=== PATIENT | female | born 1955 | race Caucasian/White ===

== ENCOUNTER 2017-07-18 21:37 | Inpatient (IN) | payer OTHER ==
[~2017-07-18] VITALS: Ht 162.6 cm; Wt 95.4 kg
--- NOTE | 2017-07-18 22:30 | NUR ---
TO BED 9 BIB PARAMEDICS C/O INTERMITTENT DIZZINESS X9 WEEKS. PT AAOX4 NO ACUTE DISTRESS NOTED, RESP EVEN AND UNLABORED. SKIN WARM, PALE, NONDIAPHORETIC. PLACE PT ON CARDAIC MONITORING, CONTINUOUS POX. PENDING ER MD MARAVILLA. PT FAMILY MEMBERS AT BEDSIDE.
--- NOTE | 2017-07-18 23:18 | NUR ---
DR. RODRIGUEZ PAGELea PER ASHA KU ORDER.
[2017-07-19] VITALS (19 sets, daily range): BP systolic 100–157; BP diastolic 33–75
--- NOTE | 2017-07-19 00:21 | NUR ---
DR. RODRIGUEZ PAGELea PER ASHA KU ORDER.
--- NOTE | 2017-07-19 00:21 | NUR ---
PT CAME BACK FROM THE BATHROOM, ASSISTED PT BACK TO BE, PT C/O DIZZINESS. ER MADE AWARE WITH ORDERS RECEIVED. WILL CARRY OUT ORDERS.
--- NOTE | 2017-07-19 00:49 | NUR ---
BLOOD DRAWN BY MATERIALS BUYER.
--- NOTE | 2017-07-19 00:51 | NUR ---
DR. RODRIGUEZ PAGELea PER ASHA KU ORDER.
--- NOTE | 2017-07-19 01:08 | NUR ---
[facility] CALLED. ANGELO MEAD NO BEDS AVAILABLE.
[2017-07-19 01:21] LABS: BASOPHILS % (AUTO) 0.1 % (0.0-2.0); LYMPHOCYTES # (AUTO) 0.8 /CMM (0.8-4.8); LYMPHOCYTES % (AUTO) 19.9 % (20.0-44.0); MEAN CORPUSCULAR HGB CONC 35 g/dl (31.0-36.0); MEAN CORPUSCULAR VOLUME 113 fL (82-100); MONOCYTES # (AUTO) 0.7 /CMM (0.1-1.30); MONOCYTES % (AUTO) 17.7 % (2.0-12.0); NEUTROPHILS # (AUTO) 2.6 /CMM (1.8-8.9); NEUTROPHILS % (AUTO) 61.3 % (43.0-81.0); PLATELET COUNT (AUTO) 202 /CMM (150-450); RDW COEFFICIENT OF VARIATION 31.8 (11.5-15.0); WHITE BLOOD COUNT (AUTO) 4.2 K/uL (4.3-11.0)
[2017-07-19 01:30] LABS: ALBUMIN 2.2 g/dL (3.4-5.0); BILIRUBIN,TOTAL 0.6 mg/dL (0.2-1.0); CREATININE 1.5 mg/dL (0.6-1.3); TOTAL PROTEIN, SERUM 6.2 g/dL (6.4-8.2)
[2017-07-19 01:35] LABS: HEMOGLOBIN 3.7 g/dL (11.5-14.8)
[2017-07-19 01:36] LABS: HEMATOCRIT 11 % (33-45); RED BLOOD CELL COUNT(AUTO) 0.94 MIL/uL (4.0-5.2)
[2017-07-19 01:37] LABS: POTASSIUM 2.7 mmol/L (3.5-5.1)
[2017-07-19 01:38] LABS: THYROID STIMULATING HORMONE 0.076 uIU/mL (0.358-3.74)
--- NOTE | 2017-07-19 01:55 | NUR ---
PT AAOX4 NO ACUTE DISTRESS NOTED, RESP EVEN AND UNLABORED. PT DENIES DIZZINESS AT THIS TIME. PT FAMILY MEMBERS REMAINS AT BEDSIDE. CALL LIGHT WIHTIN REACH.
[2017-07-19 01:56] LABS: EOSINOPHILS % (MANUAL) 2 % (0-4); LYMPHOCYTES % (MANUAL) 22 % (16-48); MONOCYTES % (MANUAL) 11 % (0-11.0); NEUTROPHILS % (MANUAL) 65 (42-76)
[2017-07-19] MEDS ORDERED: diphenhydrAMINE HCL 50 MG/ML VIAL IV ONE (02:00)
[2017-07-19] MEDS ORDERED: POTASSIUM CHLORIDE 20 MEQ POWDER PACKET PO ONE (02:00)
[2017-07-19] MEDS ORDERED: POTASSIUM CL. PREMIX PERIPHER. 100 ML ONE (02:00)
[2017-07-19] MEDS ORDERED: POTASSIUM CHLORIDE 10 MEQ/50 ML PREMIXED IVPB FOR PERIPHERAL LINE IV ONE (02:00)
[2017-07-19] MEDS ORDERED: POTASSIUM CHLORIDE 20 MEQ TAB.PRT.SR PO ONE ×2 (02:00→18:30)
[2017-07-19] MEDS ORDERED: ACETAMINOPHEN 325 MG TABLET PO ONE (02:00)
[2017-07-19] MEDS ORDERED: IV NS 0.9% 1,000 ML BAG IV ONE (02:30)
[2017-07-19] MEDS ORDERED: POTASSIUM CHLORIDE 20 MEQ POWDER PACKET ONE (02:46)
[2017-07-19] MEDS ORDERED: MAGNESIUM HYDROXIDE 30 ML UDC PO PRN (03:00)
[2017-07-19] MEDS ORDERED: MAG HYDROX/AL HYDROX/SIMETH 30 ML UDC PO PRN (03:00)
[2017-07-19] MEDS ORDERED: ACETAMINOPHEN 325 MG TABLET PO PRN (03:00)
--- NOTE | 2017-07-19 03:01 | NUR ---
PT C/O GENERALIZED BODY PAIN 10/16. ER MD MADE AWARE WITH ORDERS RECEIVED. RN TO MEDICATE PT.
[2017-07-19] MEDS ORDERED: MORPHINE SULFATE INJ 2 MG/ML DISP.SYRIN IV STA (03:04)
[2017-07-19] MEDS ORDERED: diphenhydrAMINE HCL 50 MG/ML VIAL ONE (03:06)
[2017-07-19] MEDS ORDERED: MORPHINE SULFATE INJ 4 MG/ML DISP.SYRIN ONE (03:07)
--- NOTE | 2017-07-19 03:16 | NUR ---
RN AT BEDSIDE TO MEDICATE PT.
--- NOTE | 2017-07-19 03:26 | NUR ---
1ST UNIT OF PRBC STARTED ON THE R FOREARM. WILL CONTINUE TO MONITOR FOR TRANCFUSION REACTION.
--- NOTE | 2017-07-19 03:38 | NUR ---
REPORT CALLED TO TELE 1 GURU SHANKS. WILL TRANSPORT PT VIA ACLS PROTOCOL.
--- NOTE | 2017-07-19 03:40 | NUR ---
POTASSIUM 10MEQ IVPB ENDORSED TO TELE 1 RN DIMITRIS. BLOOD TRANSFUSION ENDORSED TO RN DIMITRIS.
--- NOTE | 2017-07-19 04:55 | NUR ---
0455 PT ADMITED FROM ER , 1ST UNIT OF PRBC TRANSFUSED UPON ARRIVAL, NO S/S OF ADVERSE REACTIONS NOTED , PT ALERT, AWAKE ORIENTED, FAMILY AT BEDSIDE, VS STABLE , NO SOB NOTED, SKIN ASSESSMENT DONE, MD MADE AWARE OF ADMISSION, WAITING FOR ORDERS
[2017-07-19] MEDS ORDERED: LEVO200T8 PO (05:01)
[2017-07-19] MEDS ORDERED: MECL-102 PO (05:01)
[2017-07-19] MEDS ORDERED: FOLI1TAB16 PO (05:01)
[2017-07-19] MEDS ORDERED: OXYC10TA59 PO (05:01)
[2017-07-19] MEDS ORDERED: BUSP15TA3 PO (05:01)
[2017-07-19] MEDS ORDERED: METH5TAB16 PO (05:01)
[2017-07-19] MEDS ORDERED: VENL150C58 PO (05:01)
--- NOTE | 2017-07-19 05:54 | NUR ---
RN NOTES CLARIFIED ORDERS FOR BLOOD TRANSFUSION WITH DR ALBERT SINCE PATIENT ONLY RECEIVED 1 UNIT WITH H/H OF 3.7/11. PER DR ALBERT, THE ER PHYSICIAN TOLD HIM 3 UNITS WERE ORDERED. CALLED BLOOD BANK TO CLARIFY ORDERS, 2 MORE UNITS ORDERED FOR A TOTAL OF 3 UNITS. WILL CONTINUE TO CLOSELY MONITOR
--- NOTE | 2017-07-19 07:01 | NUR ---
2ND UNIT PRBC STARTED, VS STABLE, FAMILY AT BEDSIDE
--- NOTE | 2017-07-19 07:40 | NUR ---
RN NOTES RECEIVED PATIENT IN BED ASLEEP, AROUSAL TO TACTILE AND VERBAL STIMULI. PLACED ON O2 NC WITH ONGOING SECOND UNIT OF BLOOD TRANSFUSION. AFEBRILE AT THIS TIME. WILL MONITOR CLOSELY FOR ANY TRANSFUSION REACTIONS. DAUGHTER AT BEDSIDE. CALL LIGHT WITH IN REACH.
--- NOTE | 2017-07-19 15:35 | NUR ---
RN NOTES PT RECEIVED TOTAL OR 3 UNITS PRBC. NO TRANFUSION REACTION NOTED. PT AFEBRILE. AT BEDSIDE. PT VERBALIZED FEELLING MUCH BETTER AFTER BLOOD TRANSFUSION (3 BAGS) WILL RE-CHECK LAB (CBC, BMP) AFTER ONE HOUR PER MD ORDER. WILL NOTIFY MD OF RESULTS.
[2017-07-19 17:24] LABS: BASOPHILS % (AUTO) 0.3 % (0.0-2.0); HEMATOCRIT 22 % (33-45); HEMOGLOBIN 7.6 g/dL (11.5-14.8); LYMPHOCYTES # (AUTO) 1.2 /CMM (0.8-4.8); LYMPHOCYTES % (AUTO) 24.2 % (20.0-44.0); MEAN CORPUSCULAR HGB CONC 35 g/dl (31.0-36.0); MEAN CORPUSCULAR VOLUME 95 fL (82-100); MONOCYTES # (AUTO) 0.9 /CMM (0.1-1.30); MONOCYTES % (AUTO) 17.6 % (2.0-12.0); NEUTROPHILS # (AUTO) 2.9 /CMM (1.8-8.9); NEUTROPHILS % (AUTO) 55.9 % (43.0-81.0); PLATELET COUNT (AUTO) 175 /CMM (150-450); RDW COEFFICIENT OF VARIATION 17.4 (11.5-15.0); RED BLOOD CELL COUNT(AUTO) 2.28 MIL/uL (4.0-5.2); WHITE BLOOD COUNT (AUTO) 5.1 K/uL (4.3-11.0)
[2017-07-19 17:37] LABS: CALCIUM, SERUM 7.8 mg/dL (8.5-10.1); CREATININE 1.5 mg/dL (0.6-1.3)
[2017-07-19 17:42] LABS: POTASSIUM 2.6 mmol/L (3.5-5.1)
--- NOTE | 2017-07-19 18:20 | NUR ---
RN NOTES RECEIVED CBC RESULTS: H/H 7.6/ K+ 2.6, NOTIFIED WITH NEW ORDER TO REPLACE POTASSIUM 40 MEQ PO NOW. ORDERS NOTED AND CARRIED OUT
[2017-07-19 19:41] LABS: APPEARANCE,URINE SL CLOUDY (CLEAR); BILIRUBIN,URINE NEGATIVE (NEGATIVE); BLOOD, URINE 1+ Ery/uL (NEGATIVE); COLOR,URINE YELLOW (YELLOW); KETONES,URINE NEGATIVE (NEGATIVE); LEUKOCYTE ESTERASE ,URINE 1+ (NEGATIVE); NITRITE, URINE NEGATIVE (NEGATIVE); PH,URINE 6.5 (5.0-8.0); PROTEIN,URINE NEGATIVE (NEGATIVE); UGLUCOSE NEGATIVE (NEGATIVE)
[2017-07-19 19:50] LABS: BACTERIA,URINE Few /HPF (None Seen); SQUAMOUS EPITHELIAL CELL,UR Few /HPF (None Seen)
[2017-07-19 20:10] LABS: OSMOLALITY,URINE 219 mOS/kg (340-1090)
[2017-07-19 20:11] LABS: URINE SODIUM, RANDOM 8 mmol/l (40-220)
[2017-07-20 00:01] VITALS: BP 158/56
--- NOTE | 2017-07-20 04:00 | NUR ---
TELE-1/SUPERVISOR ASSEMBLY ROOM PT DECLINING 0400 VITALS AT THIS TIME.
[2017-07-20] MEDS: HYDROCODONE/APAP 5/325MG 1 EACH TABLET PO PRN ×2 (07:57→14:33)
[2017-07-20 08:00] VITALS: BP 164/81
--- NOTE | 2017-07-20 08:00 | NUR ---
RN NOTES PATIENT IN BED RESTING DAUGHTER AT BEDSIDE. NO SOB OR ACUTE DISTRESS NOTED. PERIPHERAL IV INTACT PATENT. BED IN LOW LOCKED POSITION CALL LIGHT WITHIN REACH WILL CONTINUE TO MONITOR.
[2017-07-20 08:36] LABS: BASOPHILS % (AUTO) 0.3 % (0.0-2.0); EOSINOPHILS % (AUTO) 2.1 % (0.0-6.0); HEMATOCRIT 24 % (33-45); HEMOGLOBIN 8.5 g/dL (11.5-14.8); LYMPHOCYTES # (AUTO) 0.9 /CMM (0.8-4.8); LYMPHOCYTES % (AUTO) 16.9 % (20.0-44.0); MEAN CORPUSCULAR HGB CONC 35 g/dl (31.0-36.0); MEAN CORPUSCULAR VOLUME 97 fL (82-100); MONOCYTES # (AUTO) 0.8 /CMM (0.1-1.30); MONOCYTES % (AUTO) 14.7 % (2.0-12.0); NEUTROPHILS # (AUTO) 3.4 /CMM (1.8-8.9); PLATELET COUNT (AUTO) 183 /CMM (150-450); RDW COEFFICIENT OF VARIATION 19.1 (11.5-15.0); RED BLOOD CELL COUNT(AUTO) 2.51 MIL/uL (4.0-5.2); WHITE BLOOD COUNT (AUTO) 5.1 K/uL (4.3-11.0)
--- NOTE | 2017-07-20 10:00 | NUR ---
RN NOTES PATIENT SEEN AND EVALUATED BY DR. MARIBEL GUTIERREZ ORDERS NOTED AND CARRIED OUT. INFORMED DR. JUAREZ PATIENTS MED RECON WAS NOT COMPLETE IF HE CAN REVIEW. WILL CONTINUE TO MONITOR.
[2017-07-20 10:06] LABS: CREATININE 1.5 mg/dL (0.6-1.3); MAGNESIUM 1.4 mg/dL (1.8-2.4); PHOSPHORUS 1.9 mg/dL (2.5-4.9); POTASSIUM 3.1 mmol/L (3.5-5.1)
[2017-07-20 12:00] VITALS: BP 150/80
[2017-07-20] MEDS: MECLIZINE HCL 12.5 MG TABLET PO SCH ×2 (12:17→20:52)
[2017-07-20] MEDS ORDERED: K PHOS NEUTRAL 250 MG TABLET PO ONE ×2 (14:00→16:00)
[2017-07-20] MEDS ORDERED: POTASSIUM CHLORIDE 10 MEQ TABLET.SA PO ONE (15:00)
[2017-07-20] MEDS: ONDANSETRON HCL/PF 4 MG/2 ML VIAL IVP PRN (15:08)
[2017-07-20 16:00] VITALS: BP 141/72
--- NOTE | 2017-07-20 16:45 | NUR ---
RN NOTES VERIFIED WITH PHARMACIST MARIBEL FOR SECOND DOSE OF KPHOS STATES PER DR. JUAREZ GIVE ADDITIONAL DOSE OF KPHOS NOTED AND CARRIED OUT.
[2017-07-20] MEDS: busPIRone 5 MG TABLET PO SCH (16:52)
[2017-07-20] MEDS: Magnesium 1GM/D5W 100ML PREMIX 100 ML IV SCH ×4 (16:54→20:52)
--- NOTE | 2017-07-20 18:17 | NUR ---
BOILER WASHER NOTES PATIENT IN BED RESTING WITH FAMILY AT BEDSIDE. NO SOB OR ACUTE DISTRESS NOTED. ALL DUE MEDICATIONS ADMINISTERED. ALL NEEDS MET. PATIENT CURRENTLY RECEIVING IV MAGNESIUM FOR REPLACEMENT. PERIPHERAL IV ON RIGHT AC INTACT PATENT. BED IN LOW LOCKED POSITION. CALL LIGHT WITHIN REACH. WILL ENDORSE JESUS ALBERTO TO PM SHIFT.
--- NOTE | 2017-07-20 19:30 | NUR ---
RN INITIAL NOTES RECEIVED PATIENT IN BED, AWAKE, ALERT AND ORIENTED X3, ABLE TO MAKE NEEDS KNOWN. PATIENT ON O2 VIA NC @ 2LPM, TOLERATING WELL, FREE FROM ANY S/S OF RESPIRATORY DISTRESS. ON TELEMETRY MONITORING, REVEALING SINUS RHYTHM. IV SITE PATENT AND INTACT, FLUSHED WITH NS, 1 BAG OF MAGNESIUM ENDORSED, TO BE GIVEN THIS SHIFT. FAMILY MEMBERS AT BEDSIDE, PLAN OF CARE DISCUSSED WITH PATIENT AND FAMILY, WITH VERBALIZATION OF UNDERSTANDING. CALL LIGHT LEFT WITHIN EASY REACH, BED IN LOWEST AND LOCKED POSITION. WILL CONTINUE TO CLOSELY MONITOR
[2017-07-20 20:00] VITALS: BP 150/61
[2017-07-20] MEDS: oxyCODONE HCL SR 10MG TAB.SR.12H PO SCH (20:52)
[2017-07-21] VITALS: BP 158/73
[2017-07-21 04:00] VITALS: BP 157/76
[2017-07-21] MEDS: MECLIZINE HCL 12.5 MG TABLET PO SCH ×3 (06:37→21:22)
--- NOTE | 2017-07-21 07:00 | NUR ---
RN CLOSING NOTES PATIENT RESTING COMFORTABLY IN BED, ALL NEEDS MET THROUGHOUT SHIFT, WILL ENDORSE THE PATIENT TO THE AM SHIFT NURSE FOR JESUS ALBERTO
--- NOTE | 2017-07-21 07:20 | NUR ---
griddle attendant opening note Received bedside SBAR report on the patient. Patient is asleep, easily awaken. Bed is locked in lowest position, side rails up x 2. Patient is ambulatory and oriented to own abilities. Skin is intact. Patient reports acute generalized pain. Will administer analgesic as ordered. Chest is rising equally/bilaterally. External cardiac cath tech reading SR 98. All needs are met. Call light within reach. Patient educated to call for assistance using the call light and verbalized understanding. Will continue to assess/monitor throughout the shift.
[2017-07-21 07:49] LABS: CALCIUM, SERUM 7.9 mg/dL (8.5-10.1); CREATININE 1.5 mg/dL (0.6-1.3); MAGNESIUM 2.3 mg/dL (1.8-2.4); PHOSPHORUS 3.6 mg/dL (2.5-4.9); POTASSIUM 3.3 mmol/L (3.5-5.1)
[2017-07-21 08:00] VITALS: BP 142/83
[2017-07-21] MEDS: LEVOTHYROXINE SODIUM 100 MCG TABLET PO SCH (08:27)
[2017-07-21] MEDS: Z GUARD REMEDY 2 OZ OINT TP PRN (08:27)
[2017-07-21] MEDS: busPIRone 5 MG TABLET PO SCH ×2 (08:28→17:34)
[2017-07-21] MEDS: oxyCODONE HCL SR 10MG TAB.SR.12H PO SCH ×2 (08:29→21:23)
[2017-07-21] MEDS: FOLIC ACID 1 MG TABLET PO SCH (08:29)
[2017-07-21] MEDS: VENLAFAXINE XR 150 MG CAP.SR.24H PO SCH (08:29)
--- NOTE | 2017-07-21 11:10 | NUR ---
Dr. Ochoa at the bedside.
--- NOTE | 2017-07-21 11:21 | NUR ---
Patient's BP noted elevated at 160/84 mm Hg. Jina Ochoa notified. Awaiting new orders. No orders received at this time.
[2017-07-21] MEDS: AMLODIPINE BESYLATE 5 MG TABLET PO SCH (11:53)
[2017-07-21 12:00] VITALS: BP 160/84
[2017-07-21] MEDS ORDERED: POTASSIUM CHLORIDE 10 MEQ TABLET.SA PO ONE (12:00)
[2017-07-21 16:00] VITALS: BP 127/87
--- NOTE | 2017-07-21 18:53 | NUR ---
heading machine operator closing note Patient is awake and responsive in bed. Bed is locked in lowest position, side rails up x 2. Patient is ambulatory and oriented to own abilities. Bedside commode at the bedside. Skin is intact. Denies pain at this time. Chest is rising equally/bilaterally. Spo2 95% on room air. External patient monitor reading SR 87. All due medications administered as prescribed with patient tolerating well. All needs are met. Call light within reach. Patient educated to call for assistance using the call light and verbalized understanding. family at the bedside. Will endorse to the manufacturing supervisor 2nd shift nurse for gosia.
--- NOTE | 2017-07-21 19:02 | NUR ---
Patient accidently removed the IV catheter with the tip intact. Oclusive dressing applied. No evidence of bleeding. New 22 gauge IV catheter started on the right hand. Patient tolerated procedure well.
--- NOTE | 2017-07-21 19:10 | NUR ---
JACKSPOOLER NOTES RECEIVED PATIENT IN BED, ASLEEP, AROUSES EASILY, ALERT AND ORIENTED X4, VERBALLY RESPONSIVE. ABLE TO MAKE NEEDS KNOWN. FAMILY MEMBER AT BEDSIDE. PATIENT ON O2 VIA NC @ 2LPM, TOLERATING WELL, FREE FROM ANY S/S OF RESPIRATORY DISTRESS. SR 83 ON TELE MONITOR. IV SITE ON RIGHT HAND PATENT AND INTACT, FLUSHED WITH NS. NO C/O PAIN OR DISCOMFORT AT THIS TIME. PLAN OF CARE DISCUSSED WITH PATIENT VERBALIZED UNDERSTANDING. CALL LIGHT LEFT WITHIN EASY REACH, BED IN LOWEST AND LOCKED POSITION. SAFETY PRECAUTIONS OBSERVED. WILL CONTINUE TO CLOSELY MONITOR
[2017-07-21 20:00] VITALS: BP 138/57
[2017-07-21] MEDS: NORTRIPTYLINE HCL 10 MG CAPSULE PO SCH (21:26)
--- NOTE | 2017-07-21 21:26 | NUR ---
UPON SCANNING PAMELOR 10 MG CAPSULE, SHOWS UNKNOWN NDC #, VERIFIED AND WITNESSED BY JOSE, CHARGE NURSE , RIGHT PT, RIGHT DOSE, RIGHT TIME, RIGHT MEDICATION, MEDICATION ADMINISTERED, WITNESSED BY JOSE CHARGE NURSE.
[2017-07-22] VITALS: BP 145/76
[2017-07-22 04:00] VITALS: BP 143/74
[2017-07-22] MEDS: MECLIZINE HCL 12.5 MG TABLET PO SCH ×3 (05:23→21:00)
[2017-07-22 06:23] LABS: BASOPHILS % (AUTO) 0.3 % (0.0-2.0); EOSINOPHILS % (AUTO) 2.3 % (0.0-6.0); HEMATOCRIT 24 % (33-45); HEMOGLOBIN 8.2 g/dL (11.5-14.8); LYMPHOCYTES # (AUTO) 1.3 /CMM (0.8-4.8); LYMPHOCYTES % (AUTO) 31.1 % (20.0-44.0); MEAN CORPUSCULAR HGB CONC 35 g/dl (31.0-36.0); MEAN CORPUSCULAR VOLUME 99 fL (82-100); MONOCYTES # (AUTO) 0.7 /CMM (0.1-1.30); MONOCYTES % (AUTO) 17.7 % (2.0-12.0); NEUTROPHILS # (AUTO) 2.1 /CMM (1.8-8.9); NEUTROPHILS % (AUTO) 48.6 % (43.0-81.0); PLATELET COUNT (AUTO) 153 /CMM (150-450); WHITE BLOOD COUNT (AUTO) 4.2 K/uL (4.3-11.0)
--- NOTE | 2017-07-22 06:23 | NUR ---
CARPET INSPECTOR NOTES PATIENT IN BED, RESTING COMFORTABLY, AROUSES EASILY, ALERT AND ORIENTED X4, VERBALLY RESPONSIVE. ABLE TO MAKE NEEDS KNOWN. FAMILY MEMBER AT BEDSIDE. PATIENT ON O2 VIA NC @ 2LPM, TOLERATING WELL, NO S/S OF RESPIRATORY DISTRESS. SR 86 ON TELE MONITOR. IV SITE ON RIGHT HAND PATENT AND INTACT, FLUSHED WITH NS. NO C/O PAIN OR DISCOMFORT AT THIS TIME. ALL DUE MEDS GIVEN. CALL LIGHT WITHIN EASY REACH, BED IN LOWEST AND LOCKED POSITION. SAFETY PRECAUTIONS OBSERVED. WILL ENDORSE TO NEXT SHIFT ACCORDINGLY FOR JESUS ALBERTO.
[2017-07-22 06:36] LABS: CREATININE 1.4 mg/dL (0.6-1.3); POTASSIUM 3.5 mmol/L (3.5-5.1)
[2017-07-22 06:59] LABS: LYMPHOCYTES % (MANUAL) 29 % (16-48); MONOCYTES % (MANUAL) 13 % (0-11.0); NEUTROPHILS % (MANUAL) 58 (42-76)
--- NOTE | 2017-07-22 07:28 | NUR ---
PRINCIPAL NETWORK ARCHITECT OPENING NOTES RECEIVED PATIENT IN STABLE CONDITION. IN NO APPARENT DISTRESS. BEDSIDE RAILS ARE UPX2. BED IS LOCKED AND LOWERED. CALL LIGHT IS WITHIN REACH. FAMILY IS AT THE BEDSIDE. PATIENT IS SLEEPING, AROUSES EASILY. IV LINE IS PATENT AND INTACT. WILL CONTINUE TO MONITOR.
[2017-07-22 08:00] VITALS: BP 154/76
[2017-07-22] MEDS: oxyCODONE HCL SR 10MG TAB.SR.12H PO SCH ×2 (08:55→21:00)
[2017-07-22] MEDS: VENLAFAXINE XR 150 MG CAP.SR.24H PO SCH (08:55)
[2017-07-22] MEDS: FOLIC ACID 1 MG TABLET PO SCH (08:55)
[2017-07-22] MEDS: AMLODIPINE BESYLATE 5 MG TABLET PO SCH (08:56)
[2017-07-22] MEDS: LEVOTHYROXINE SODIUM 100 MCG TABLET PO SCH (08:56)
[2017-07-22] MEDS: busPIRone 5 MG TABLET PO SCH ×2 (08:56→16:03)
[2017-07-22] MEDS: oxyCODONE IR immediate release 5 MG PO PRN (12:00)
[2017-07-22] MEDS ORDERED: LORAZEPAM 0.5 MG TABLET PO ONE (13:00)
[2017-07-22] MEDS ORDERED: ALPRAZOLAM 0.25 MG TABLET PO ONE (13:00)
[2017-07-22] MEDS: ONDANSETRON HCL/PF 4 MG/2 ML VIAL IVP PRN (13:08)
--- NOTE | 2017-07-22 13:35 | NUR ---
PATIENT WAS TAKEN TO MRI.
[2017-07-22 16:00] VITALS: BP 139/63
--- NOTE | 2017-07-22 18:30 | NUR ---
MS RN CLOSING NOTES PATIENT IS RESTING IN BED IN NO APPARENT DISTRESS. BEDSIDE RAILS ARE UPX2. BED IS LOCKED AND LOWERED. IV LINE IS PATENT AND INTACT. CALL LIGHT IS WITHIN REACH. PATIENT IS SLEEPING EASILY AROUSED. ALL NEEDS WERE MET. WILL ENDORSE CARE TO BOILER TUBE REAMER NURSE FOR JESUS ALBERTO.
[2017-07-22] MEDS ORDERED: GADOVERSETAMIDE 5 MMOL/10 ML VIAL IJ ONE (19:28)
--- NOTE | 2017-07-22 19:35 | NUR ---
MS RN NOTE RECEIVED PATIENT FROM DAY SHIFT, PATIENT IS ALERT AND ORIENTEDX4, DENIES RESPIRATORY DISTRESS AND COMPLAINS OF LEFT SHOULDER PAIN, WILL PROVIDE WARM PACKS. IV ON RIGHT HAND IS PATENT AND INTACT, HL ONLY. SRX2, BED IN LOW POSITION, CALL LIGHT WITHIN REACH, WILL CONTINUE TO MONITOR PATIENT.
[2017-07-22 20:00] VITALS: BP 133/65
[2017-07-22] MEDS: NORTRIPTYLINE HCL 10 MG CAPSULE PO SCH (21:03)
[2017-07-23] VITALS (8 sets, daily range): BP systolic 122–154; BP diastolic 53–80
[2017-07-23] MEDS: MECLIZINE HCL 12.5 MG TABLET PO SCH ×3 (05:00→21:03)
--- NOTE | 2017-07-23 06:37 | NUR ---
MS RN NOTE PATIENT IS SLEEPING IN BED COMFORTABLY, NO ACUTE EVENT NOTED THROUGHOUT THE INSTRUCTION LIBRARIAN. WILL ENDORSE TO DAY SHIFT FOR JESUS ALBERTO.
[2017-07-23 07:27] LABS: BASOPHILS % (AUTO) 0.2 % (0.0-2.0); EOSINOPHILS % (AUTO) 1.7 % (0.0-6.0); HEMATOCRIT 21 % (33-45); HEMOGLOBIN 7.1 g/dL (11.5-14.8); LYMPHOCYTES # (AUTO) 1.3 /CMM (0.8-4.8); LYMPHOCYTES % (AUTO) 30.3 % (20.0-44.0); MEAN CORPUSCULAR HGB CONC 34 g/dl (31.0-36.0); MEAN CORPUSCULAR VOLUME 99 fL (82-100); MONOCYTES # (AUTO) 0.8 /CMM (0.1-1.30); MONOCYTES % (AUTO) 18.5 % (2.0-12.0); NEUTROPHILS # (AUTO) 2.1 /CMM (1.8-8.9); NEUTROPHILS % (AUTO) 49.3 % (43.0-81.0); PLATELET COUNT (AUTO) 148 /CMM (150-450); RDW COEFFICIENT OF VARIATION 23.8 (11.5-15.0); RED BLOOD CELL COUNT(AUTO) 2.09 MIL/uL (4.0-5.2); WHITE BLOOD COUNT (AUTO) 4.2 K/uL (4.3-11.0)
--- NOTE | 2017-07-23 07:30 | NUR ---
RN MS NOTES PT IN BED, ASLEEP, EASY TO AROUSE, ALERT AND ORIENTED, NO COMPLAINT OF PAIN AT THIS TIME, RESPIRATIONS NORMAL, CALL LIGHT WITHIN REACH, KEPT WARM AND COMFORTABLE.
[2017-07-23 07:40] LABS: CALCIUM, SERUM 7.6 mg/dL (8.5-10.1); CREATININE 1.4 mg/dL (0.6-1.3); MAGNESIUM 1.6 mg/dL (1.8-2.4); PHOSPHORUS 3.7 mg/dL (2.5-4.9); POTASSIUM 3.5 mmol/L (3.5-5.1)
[2017-07-23] MEDS: FOLIC ACID 1 MG TABLET PO SCH (08:54)
[2017-07-23] MEDS: VENLAFAXINE XR 150 MG CAP.SR.24H PO SCH (08:54)
[2017-07-23] MEDS: LEVOTHYROXINE SODIUM 100 MCG TABLET PO SCH (08:54)
[2017-07-23] MEDS: busPIRone 5 MG TABLET PO SCH ×2 (08:54→16:47)
[2017-07-23] MEDS: AMLODIPINE BESYLATE 5 MG TABLET PO SCH (08:54)
[2017-07-23] MEDS: oxyCODONE HCL SR 10MG TAB.SR.12H PO SCH ×2 (08:56→21:03)
[2017-07-23 09:10] LABS: EOSINOPHILS % (MANUAL) 2 % (0-4); LYMPHOCYTES % (MANUAL) 32 % (16-48); MONOCYTES % (MANUAL) 17 % (0-11.0); NEUTROPHILS % (MANUAL) 49 (42-76)
[2017-07-23] MEDS: Magnesium 1GM/D5W 100ML PREMIX 100 ML IV SCH ×2 (10:57→12:11)
--- NOTE | 2017-07-23 12:30 | NUR ---
RN MS NOTES PT IN BED, AWAKE, ALERT AND ORIENTED, NO COMPLAINT OF PAIN AT THIS TIME, RESPIRATIONS NORMAL, FAMILY AT BEDSIDE, MAGNESIUM REPLACED ORDERED, MD INFORMED OF LATEST H/H RESULTS, AWAITING FOR ORDERS, CALL LIGHT WITHIN REACH, NEEDS ATTENDED.
[2017-07-23] MEDS: oxyCODONE IR immediate release 5 MG PO PRN (17:26)
--- NOTE | 2017-07-23 18:05 | NUR ---
RN MS NOTES PT IN BED, RESTING, PAIN MEDICATION GIVEN FOR LEFT ARM PAIN, WITH ONGOING BLOOD TRANSFUSION ORDERED BY DR. JUAREZ, TOLERATING WELL, PLAN OF CARE DISCUSSED BY MD WITH PT AND FAMILY, VERBALIZED UNDERSTANDING, CALL LIGHT WITHIN REACH, WILL CONTINUE TO MONITOR.
--- NOTE | 2017-07-23 19:30 | NUR ---
MS RN OPENING NOTES: PATIENT IN BED, AOX4, ON O2 AT 2 LPM VIA NC, BREATHING EVEN AND UNLABORED. APPEARS CALM AND IN NO DISTRESS, BUT DOES COMPLAIN OF MODERATE PAIN OVER HER LEFT ARM, SCALED AT 7-8. PIV OVER R HAND G 22 INTACT AND PATENT, CURRENTLY INFUSING WITH NS AFTER 1 UNIT OF PRBC HAS JUST FINISHED. NO SIGNS OF INFILTRATION NOTED. PROVIDED FOR COMFORT AND SAFETY. BED IN LOWEST AND LOCKED POSITION, SIDERAILS UP X 3, CALL LIGHT WITHIN REACH. AT BEDSIDE. WILL CONT TO MONITOR.
--- NOTE | 2017-07-23 21:20 | NUR ---
RN NOTES: CALLED PHARMACIST FOREIGN LANGUAGE STENOGRAPHER, ALEKSEY FRANCISTRYPTYLINE ORDER, DOSE IS 25 MG, STOCK DOSE IS 10 MG CAPS, AND INSTRUCTION IS 2.5 CAPS TO BE ADMINISTERED. PER PHARMACIST, SHE WILL CHECK ON HOW DOSE CAN BE ADMINISTERED. AWAITING FOR CALL BACK.
[2017-07-23] MEDS ORDERED: NORTRIPTYLINE HCL 10 MG CAPSULE PO SCH (22:00)
[2017-07-23] MEDS: NORTRIPTYLINE HCL 25 MG CAPSULE PO SCH (22:07)
--- NOTE | 2017-07-24 00:30 | NUR ---
RN NOTES: REASSESSED PATIENT FOR PAIN, STATES THAT IT IS NOW AT 4 OR 5/10. WHEN ASKED IF SHE WILL BE NEEDING PAIN MEDS, PATIENT DECLINED AND AID THAT SHE IS READY TO SLEEP AND WILL CALL IF PAIN MEDS ARE NEEDED. WILL CONT TO MONITOR.
[2017-07-24 05:00] VITALS: BP 146/77
[2017-07-24] MEDS: MECLIZINE HCL 12.5 MG TABLET PO SCH ×3 (05:13→21:10)
[2017-07-24 06:35] LABS: BASOPHILS % (AUTO) 0.3 % (0.0-2.0); EOSINOPHILS % (AUTO) 1.6 % (0.0-6.0); HEMATOCRIT 27 % (33-45); HEMOGLOBIN 9.5 g/dL (11.5-14.8); LYMPHOCYTES # (AUTO) 1.1 /CMM (0.8-4.8); LYMPHOCYTES % (AUTO) 24.7 % (20.0-44.0); MEAN CORPUSCULAR HGB CONC 35 g/dl (31.0-36.0); MEAN CORPUSCULAR VOLUME 96 fL (82-100); MONOCYTES # (AUTO) 0.7 /CMM (0.1-1.30); MONOCYTES % (AUTO) 15.8 % (2.0-12.0); NEUTROPHILS # (AUTO) 2.7 /CMM (1.8-8.9); NEUTROPHILS % (AUTO) 57.6 % (43.0-81.0); PLATELET COUNT (AUTO) 172 /CMM (150-450); RDW COEFFICIENT OF VARIATION 18.1 (11.5-15.0); RED BLOOD CELL COUNT(AUTO) 2.83 MIL/uL (4.0-5.2); WHITE BLOOD COUNT (AUTO) 4.7 K/uL (4.3-11.0)
[2017-07-24 06:55] LABS: CALCIUM, SERUM 8.4 mg/dL (8.5-10.1); CREATININE 1.4 mg/dL (0.6-1.3); MAGNESIUM 1.8 mg/dL (1.8-2.4); POTASSIUM 3.6 mmol/L (3.5-5.1)
[2017-07-24] MEDS: LEVOTHYROXINE SODIUM 100 MCG TABLET PO SCH (07:03)
--- NOTE | 2017-07-24 07:28 | NUR ---
MS RN CLOSING NOTES: PATIENT IN BED, AOX4, ON ROOM AIR, BREATHING EVEN AND UNLABORED. APPEARS CALM AND IN NO DISTRESS, WAS ABLE TO SLEEP WELL THROUGH NIGHT. DUE MEDS GIVEN, PROVIDED FOR COMFORT AND SAFETY. BED IN LOWEST AND LOCKED POSITION. SIDERAILS UP X3, CALL LIGHT WITHIN REACH. WILL ENDORSE TO AM RN FOR JESUS ALBERTO.
--- NOTE | 2017-07-24 07:52 | NUR ---
DONOR SERVICES TEAM LEADER NOTES RECEIVED PT ON BED SLEEPING. ALERT ORIENTED X4. IV ACCESS ON RIGHT HAND G22 SL. HEAD OF BED ELEVATED. SIDE RAILS UP. CALL LIGHT WITHIN REACH. WILL CONTINUE TO MONITOR PT CLOSELY.
[2017-07-24 08:00] VITALS: BP 128/74
[2017-07-24] MEDS: AMLODIPINE BESYLATE 5 MG TABLET PO SCH (08:42)
[2017-07-24] MEDS: VENLAFAXINE XR 150 MG CAP.SR.24H PO SCH (08:42)
[2017-07-24] MEDS: oxyCODONE HCL SR 10MG TAB.SR.12H PO SCH ×2 (08:42→21:10)
[2017-07-24] MEDS: FOLIC ACID 1 MG TABLET PO SCH (08:42)
[2017-07-24] MEDS: busPIRone 5 MG TABLET PO SCH ×2 (08:43→16:06)
[2017-07-24 08:59] LABS: EOSINOPHILS % (MANUAL) 1 % (0-4); LYMPHOCYTES % (MANUAL) 29 % (16-48); MONOCYTES % (MANUAL) 10 % (0-11.0); NEUTROPHILS % (MANUAL) 60 (42-76)
[2017-07-24 16:00] VITALS: BP 149/80
[2017-07-24] MEDS: oxyCODONE IR immediate release 5 MG PO PRN (17:34)
--- NOTE | 2017-07-24 19:29 | NUR ---
BRAN MIXER NOTES hypertension, previous MD, hypercholesteremia,. Addendum: 07/24/17 at 1931 by FACUNDO LOMELI RN WRONG INPUT. BRAN MIXER NOTES NO ACUTE CHANGES NOTED DURING THE SHIFT. PROVIDED COMFORT AND SAFETY. HEAD OF BED ELEVATED. WILL ENDORSE TO THE PM NURSE FOR JESUS ALBERTO.
[2017-07-24 20:00] VITALS: BP 143/74
[2017-07-24] MEDS ORDERED: GABAPENTIN 300 MG CAPSULE ONE (20:42)
[2017-07-24] MEDS: NORTRIPTYLINE HCL 25 MG CAPSULE PO SCH (21:09)
[2017-07-24] MEDS: GABAPENTIN 300 MG CAPSULE PO SCH (21:09)
[2017-07-25 04:00] VITALS: BP 147/75
[2017-07-25] MEDS: MECLIZINE HCL 12.5 MG TABLET PO SCH ×3 (05:15→20:51)
--- NOTE | 2017-07-25 07:30 | NUR ---
PT IN BED, RESTING COMFORTABLY. NO DISTRESS NOTED. DAUGHTER AT BEDSIDE. WILL CONTINUE TO MONITOR.
[2017-07-25 08:00] VITALS: BP 145/72
[2017-07-25] MEDS: LEVOTHYROXINE SODIUM 100 MCG TABLET PO SCH (08:25)
[2017-07-25] MEDS: FOLIC ACID 1 MG TABLET PO SCH (08:25)
[2017-07-25] MEDS: busPIRone 5 MG TABLET PO SCH ×2 (08:25→17:08)
[2017-07-25] MEDS: VENLAFAXINE XR 150 MG CAP.SR.24H PO SCH (08:25)
[2017-07-25] MEDS: AMLODIPINE BESYLATE 5 MG TABLET PO SCH (08:25)
[2017-07-25] MEDS: oxyCODONE HCL SR 10MG TAB.SR.12H PO SCH ×2 (08:27→20:51)
[2017-07-25 12:00] VITALS: BP 146/68
[2017-07-25 12:04] VITALS: BP 146/68
[2017-07-25] MEDS: ONDANSETRON HCL/PF 4 MG/2 ML VIAL IVP PRN (12:27)
--- NOTE | 2017-07-25 14:07 | NUR ---
NOTIFIED MARIBEL JUAREZ OF PT'S FREQUENT VOMITING. NO NEW ORDERS RECEIVED. WILL CONT TO MONITOR.
--- NOTE | 2017-07-25 15:00 | NUR ---
LEFT MESSAGE TO YING [place] REGARDING UPDATED MEDICAL INSURANCE PER SON. WAING FOR CALL BACK.
[2017-07-25 16:07] VITALS: BP 156/80
--- NOTE | 2017-07-25 19:34 | NUR ---
IN BED, AWAKE, FAMILY AT BEDSIDE. NO DISTRESS NOTED. WILL JASS TO MONITOR.
[2017-07-25 20:00] VITALS: BP 151/81
[2017-07-25] MEDS: GABAPENTIN 300 MG CAPSULE PO SCH (20:50)
[2017-07-25] MEDS: NORTRIPTYLINE HCL 25 MG CAPSULE PO SCH (20:50)
[2017-07-25] MEDS: oxyCODONE IR immediate release 5 MG PO PRN (21:40)
--- NOTE | 2017-07-26 04:32 | NUR ---
multimedia journalist notes Patient refused 04:00 Vital signs check. offered 3 times, explained risks and benefits and still refused. will cont to monitor patient.
[2017-07-26] MEDS: MECLIZINE HCL 12.5 MG TABLET PO SCH ×3 (05:55→20:42)
--- NOTE | 2017-07-26 07:45 | NUR ---
RN OPENING NOTES RECIEIVED PT. IN BED A&OX4. PT.'S DAUGHTER IS AT BEDSIDE. BREATHING UNLABORED AND EVENLY ON ROOM AIR. NO S/S OF ACUTE DISTRESS. BED IS IN LOWEST, AND LOCKED POSITION. 2 SIDE RAILS UP, AND INSTRUCTED PT.TO USE CALL LIGHT FOR ASSISTANCE. ALL NEEDS MET. WILL CONTINUE TO ASSESS AND, MONITOR.
[2017-07-26 08:00] VITALS: BP 150/71
[2017-07-26] MEDS: LEVOTHYROXINE SODIUM 100 MCG TABLET PO SCH (08:15)
[2017-07-26] MEDS: oxyCODONE HCL SR 10MG TAB.SR.12H PO SCH ×2 (08:16→20:43)
[2017-07-26 08:24] LABS: BASOPHILS % (AUTO) 0.3 % (0.0-2.0); EOSINOPHILS % (AUTO) 1.4 % (0.0-6.0); HEMATOCRIT 26 % (33-45); LYMPHOCYTES # (AUTO) 1.3 /CMM (0.8-4.8); LYMPHOCYTES % (AUTO) 22.2 % (20.0-44.0); MEAN CORPUSCULAR HGB CONC 35 g/dl (31.0-36.0); MEAN CORPUSCULAR VOLUME 97 fL (82-100); MONOCYTES # (AUTO) 0.9 /CMM (0.1-1.30); MONOCYTES % (AUTO) 16.5 % (2.0-12.0); NEUTROPHILS # (AUTO) 3.4 /CMM (1.8-8.9); NEUTROPHILS % (AUTO) 59.6 % (43.0-81.0); PLATELET COUNT (AUTO) 178 /CMM (150-450); RDW COEFFICIENT OF VARIATION 24.1 (11.5-15.0); RED BLOOD CELL COUNT(AUTO) 2.65 MIL/uL (4.0-5.2); WHITE BLOOD COUNT (AUTO) 5.7 K/uL (4.3-11.0)
[2017-07-26 08:27] LABS: CALCIUM, SERUM 8.2 mg/dL (8.5-10.1); CREATININE 1.6 mg/dL (0.6-1.3); MAGNESIUM 1.5 mg/dL (1.8-2.4); POTASSIUM 3.5 mmol/L (3.5-5.1)
[2017-07-26] MEDS: busPIRone 5 MG TABLET PO SCH ×2 (09:14→16:36)
[2017-07-26] MEDS: VENLAFAXINE XR 150 MG CAP.SR.24H PO SCH (09:14)
[2017-07-26] MEDS: FOLIC ACID 1 MG TABLET PO SCH (09:14)
[2017-07-26] MEDS: AMLODIPINE BESYLATE 5 MG TABLET PO SCH (09:15)
[2017-07-26] MEDS ORDERED: Magnesium 1GM/D5W 100ML PREMIX 100 ML IV SCH (09:28)
[2017-07-26 11:48] LABS: LYMPHOCYTES % (MANUAL) 24 % (16-48); MONOCYTES % (MANUAL) 10 % (0-11.0); NEUTROPHILS % (MANUAL) 64 (42-76)
[2017-07-26 11:49] LABS: EOSINOPHILS % (MANUAL) 2 % (0-4)
[2017-07-26 16:00] VITALS: BP 147/63
--- NOTE | 2017-07-26 19:00 | NUR ---
RN CLOSING NOTES PT. IS IN BED A&OX4. BREATHING UNLABORED AND EVENLY ON ROOM AIR. NO S/S OF ACUTE DISTRESS. BED IS IN LOWEST, AND LOCKED POSITION. 2 SIDE RAILS UP, AND INSTRUCTED PT.TO USE CALL LIGHT FOR ASSISTANCE. ALL NEEDS MET. WILL ENDORSE REPORT TO NURSE.
--- NOTE | 2017-07-26 19:25 | NUR ---
RN OPEN NOTES RECEIVED PATIENT AWAKE IN BED WITH FAMILY AT BEDSIDE. A./O X4. NO SIGNS OF DISTRESS OR DISCOMFORT. BREATHING EVEN AND UNLABORED. IV ACCESS IN R HAND, PATENT AND INTACT, NO SIGNS OF REDNESS OR INFILTRATION. BED IN LOW LOCKED POSITION WITH SIDE RAILS X2. CALL LIGHT WITHIN REACH. WILL CONTINUE TO MONITOR.
[2017-07-26 20:00] VITALS: BP 148/73
[2017-07-26] MEDS: GABAPENTIN 300 MG CAPSULE PO SCH (21:54)
[2017-07-26] MEDS: NORTRIPTYLINE HCL 25 MG CAPSULE PO SCH (21:54)
[2017-07-27] MEDS: MECLIZINE HCL 12.5 MG TABLET PO SCH ×3 (06:01→21:14)
--- NOTE | 2017-07-27 07:03 | NUR ---
RN CLOSING NOTES PATIENT RESTING IN BED WITH FAMILY AT BEDSIDE, EASILY AROUSABLE. A./O X4. NO SIGNS OF DISTRESS OR DISCOMFORT. BREATHING EVEN AND UNLABORED. IV ACCESS IN R HAND, PATENT AND INTACT, NO SIGNS OF REDNESS OR INFILTRATION. NO SIGNIFICANT CHANGES THROUGH THE NIGHT. ALL NEEDS MET. BED IN LOW LOCKED POSITION WITH SIDE RAILS X2. CALL LIGHT WITHIN REACH. WILL ENDORSE TO AM SHIFT FOR JESUS ALBERTO.
[2017-07-27 08:00] VITALS: BP 156/79
[2017-07-27] MEDS: oxyCODONE HCL SR 10MG TAB.SR.12H PO SCH ×2 (09:04→21:15)
[2017-07-27] MEDS: busPIRone 5 MG TABLET PO SCH ×2 (09:05→16:16)
[2017-07-27] MEDS: FOLIC ACID 1 MG TABLET PO SCH (09:05)
[2017-07-27] MEDS: VENLAFAXINE XR 150 MG CAP.SR.24H PO SCH (09:05)
[2017-07-27] MEDS: AMLODIPINE BESYLATE 5 MG TABLET PO SCH (09:05)
[2017-07-27] MEDS: LEVOTHYROXINE SODIUM 100 MCG TABLET PO SCH (09:06)
[2017-07-27 10:44] LABS: CALCIUM, SERUM 8.1 mg/dL (8.5-10.1); CREATININE 1.4 mg/dL (0.6-1.3); MAGNESIUM 1.6 mg/dL (1.8-2.4); POTASSIUM 3.3 mmol/L (3.5-5.1)
--- NOTE | 2017-07-27 15:28 | NUR ---
PT IS REFUSING PM VITALS CHECK.
[2017-07-27 20:00] VITALS: BP 137/73
--- NOTE | 2017-07-27 20:00 | NUR ---
MS RN NOTES ON BED A/O X4,BREATHING REGULAR,NOT IN ANY FORM OF DISTRESS.IV SITE WITH SLIGHT REDNESS NOTED,PATIENT WANTS TO TAKE IT OFF FOR AWHILE AND NURSE ASSIGNED WILL PUT A NEW ONE.VISITORS AT BEDSIDE.CALL LIGHT IN REACH,NEEDS ANTICIPATED.
--- NOTE | 2017-07-27 20:00 | NUR ---
MS RN NOTES NOTED SLIGHT REDNESS ON IV SITE,PATIENT CLAIMED PAIN AND WANTS IT REMOVED.IT WAS REMOVED AND ADVISED WILL PUT A NEW SALINE LOCK BUT REFUSED.NORBERTO GILBERT MADE AWARE.
[2017-07-27 20:09] LABS: IRON, SERUM 30 ug/dl (50-175); TOTAL IRON BINDING CAPACITY 160 ug/dl (250-450)
[2017-07-27] MEDS: ENOXAPARIN SODIUM 40 MG/0.4 ML DISP.SYRIN SQ SCH (21:10)
--- NOTE | 2017-07-27 21:10 | NUR ---
MS RN NOTES STARTED ON LOVENOX 40MG SQ GIVEN ON RIGHT LOWER ABDOMEN NEW ORDER FOR DVT PROPHYLAXIS
[2017-07-27] MEDS: VALSARTAN 40 MG TABLET PO SCH (21:14)
--- NOTE | 2017-07-27 22:00 | NUR ---
MS RN NOTES C/O VOMITING,NO IV ACCESS,GET ORDER FOR PO ZOFRAN NOTED AND CARRIED OUT.
[2017-07-27] MEDS: NORTRIPTYLINE HCL 25 MG CAPSULE PO SCH (22:20)
[2017-07-27] MEDS: GABAPENTIN 300 MG CAPSULE PO SCH (22:20)
[2017-07-28] MEDS: MECLIZINE HCL 12.5 MG TABLET PO SCH ×3 (05:00→21:09)
--- NOTE | 2017-07-28 05:00 | NUR ---
MS RN NOTES SLEEPING,MECLIZINE 12.5MG PO HELD.
--- NOTE | 2017-07-28 05:24 | NUR ---
MS RN NOTES DONT WANT TO BE BOTHER WHEN SLEEPING,MEMBER OF TECHNICAL STAFF WILL COME BACK LATER FOR LAB DRAW.
--- NOTE | 2017-07-28 06:23 | NUR ---
MS RN NOTES EKG DONE THIS MORNING.REMAINS NO SALINE LOCK,PATIENT REFUSED,NORBERTO ACNP AWARE.POSSIBLE D/C.DISPATCHER SHIP PILOT TO WORK FOR ARU PLACEMENT.IN NO ACUTE DISTRESS.WILL ENDORSE TO DAYNURSE FOR JESUS ALBERTO.
--- NOTE | 2017-07-28 07:40 | NUR ---
RN OPENING NOTES RECEIVED PT. PT IS STABLE AND SLEEPING IN BED, FAMILY MEMBER BEDSIDE. NO S/S OF RESP DISTRESS OR SOB. NO C/O PAIN AT THIS TIME. PT DOES NOT HAVE IV ACCESS IT WAS REMOVED PREVIOUS NIGHT, REFUSES INSERTION OF NEW ACCESS, MD AWARE. SAFETY MEASURES IN PLACE, CALL LIGHT WITHIN REACH. WILL CONTINUE TO MONITOR.
[2017-07-28 08:00] VITALS: BP 158/85
[2017-07-28] MEDS: busPIRone 5 MG TABLET PO SCH ×2 (09:00→17:12)
[2017-07-28] MEDS: LEVOTHYROXINE SODIUM 100 MCG TABLET PO SCH (10:05)
[2017-07-28] MEDS: VENLAFAXINE XR 150 MG CAP.SR.24H PO SCH (10:06)
[2017-07-28] MEDS: VALSARTAN 40 MG TABLET PO SCH (10:06)
[2017-07-28] MEDS: FOLIC ACID 1 MG TABLET PO SCH (10:07)
[2017-07-28] MEDS: AMLODIPINE BESYLATE 5 MG TABLET PO SCH (10:07)
[2017-07-28] MEDS: oxyCODONE HCL SR 10MG TAB.SR.12H PO SCH ×2 (10:08→21:09)
--- NOTE | 2017-07-28 11:30 | NUR ---
RN NOTES AM BUSPAR NOT GIVEN DUE TO UNAVAILABILITY. PHARMACY NOTIFIED. STATED BY PHARMACY ANALYST: PHARMACY IS AWAITING RESTOCK OF BUSPAR.
[2017-07-28 13:00] LABS: BASOPHILS % (AUTO) 0.2 % (0.0-2.0); EOSINOPHILS % (AUTO) 1.2 % (0.0-6.0); HEMATOCRIT 28 % (33-45); HEMOGLOBIN 9.4 g/dL (11.5-14.8); LYMPHOCYTES % (AUTO) 14.5 % (20.0-44.0); MEAN CORPUSCULAR HGB CONC 34 g/dl (31.0-36.0); MEAN CORPUSCULAR VOLUME 97 fL (82-100); MONOCYTES # (AUTO) 0.9 /CMM (0.1-1.30); MONOCYTES % (AUTO) 13.3 % (2.0-12.0); NEUTROPHILS # (AUTO) 4.7 /CMM (1.8-8.9); NEUTROPHILS % (AUTO) 70.8 % (43.0-81.0); PLATELET COUNT (AUTO) 205 /CMM (150-450); RDW COEFFICIENT OF VARIATION 24.9 (11.5-15.0); RED BLOOD CELL COUNT(AUTO) 2.83 MIL/uL (4.0-5.2); WHITE BLOOD COUNT (AUTO) 6.6 K/uL (4.3-11.0)
[2017-07-28 15:26] LABS: CALCIUM, SERUM 8.4 mg/dL (8.5-10.1); CREATININE 1.4 mg/dL (0.6-1.3); MAGNESIUM 1.4 mg/dL (1.8-2.4); PHOSPHORUS 3.7 mg/dL (2.5-4.9); POTASSIUM 3.3 mmol/L (3.5-5.1)
[2017-07-28 16:00] VITALS: BP 114/55
[2017-07-28] MEDS ORDERED: FUROSEMIDE 20 MG/2 ML VIAL IV ONE (16:30)
[2017-07-28] MEDS ORDERED: Magnesium 1GM/D5W 100ML PREMIX 100 ML IV SCH (16:30)
[2017-07-28] MEDS ORDERED: MAGNESIUM OXIDE 400 MG TABLET PO ONE (17:00)
--- NOTE | 2017-07-28 18:35 | NUR ---
RN CLOSING NOTES PT IN BED RESTING. NO S/S OF RESP DISTRESS OR SOB. PT DOES NOT APPEAR TO BE IN PAIN. PT STILL UNDECIDED REGARDING SNF OR HOME HEALTH PT. WILL ENDORSE TO FOLLOWING RN TO F/U. ALL PT NEEDS ANTICIPATED AND MET, SAFETY MEASURES IN PLACE, CALL LIGHT WITHIN REACH. WILL ENDORSE TO MARINE FITTER FOR JESUS ALBERTO.
[2017-07-28] MEDS ORDERED: FUROSEMIDE 20 MG TABLET PO ONE (19:30)
--- NOTE | 2017-07-28 19:35 | NUR ---
MS RN NOTES RESTING COMFORTABLY ON BED,BREATHING REGULAR,SKIN WARM AND DRY TO THE TOUCH,NO IV ACCESS,PATIENT REFUSED,MD AWARE.VISITOR AT BEDSIDE.CALL LIGHT IN REACH,NEEDS ANTICIPATED.
[2017-07-28 20:00] VITALS: BP 135/69
[2017-07-28] MEDS ORDERED: POTASSIUM CHLORIDE 20 MEQ TAB.PRT.SR PO ONE (21:00)
[2017-07-28] MEDS: ENOXAPARIN SODIUM 40 MG/0.4 ML DISP.SYRIN SQ SCH (21:10)
[2017-07-28] MEDS: NORTRIPTYLINE HCL 25 MG CAPSULE PO SCH (22:01)
[2017-07-28] MEDS: GABAPENTIN 300 MG CAPSULE PO SCH (22:01)
[2017-07-29] VITALS: BP 143/74
[2017-07-29 03:50] VITALS: BP 108/59
[2017-07-29 04:00] VITALS: BP 116/58
[2017-07-29] MEDS: MECLIZINE HCL 12.5 MG TABLET PO SCH ×3 (05:00→21:28)
--- NOTE | 2017-07-29 06:52 | NUR ---
MS RN NOTES ALL DUE MEDS GIVEN,TOLERATED WELL. NO VOMITING NOTED,SLEPT WELL, AT BEDSIDE.CALL LIGHT IN REACH,NEEDS ATTENDED,D/C PLAN,STILL WAITING FOR PLACEMENT.WILL ENDORSE TO DAY NURSE FOR JESUS ALBERTO.
--- NOTE | 2017-07-29 07:40 | NUR ---
MS RN OPENING NOTE PATIENT ASLEEP AT THIS TIME, RESTING COMFORTABLY. NO FACIAL GRIMACING NOTED FOR PAIN. NO SOB OR DISTRESS NOTED. CALL LIGHT WITHIN REACH. SAFETY MEASURES IMPLEMENTED. ON ROOM AIR TOLERATING WELL AT 965. BEDSIDE COMMODE. NO IV IN AT THIS TIME, PATIENT REFUSED AND MD AWARE. PENDING AM LABS. WILL CONTINUE TO MONITOR THROUGHOUT SHIFT
[2017-07-29 08:00] VITALS: BP 112/76
[2017-07-29] MEDS: POTASSIUM CHLORIDE 20 MEQ TAB.PRT.SR PO SCH (08:35)
[2017-07-29] MEDS: busPIRone 5 MG TABLET PO SCH ×2 (08:35→16:21)
[2017-07-29] MEDS: VENLAFAXINE XR 150 MG CAP.SR.24H PO SCH (08:35)
[2017-07-29] MEDS: LEVOTHYROXINE SODIUM 100 MCG TABLET PO SCH (08:35)
[2017-07-29] MEDS: FOLIC ACID 1 MG TABLET PO SCH (08:36)
[2017-07-29] MEDS: VALSARTAN 40 MG TABLET PO SCH (08:36)
[2017-07-29] MEDS: AMLODIPINE BESYLATE 5 MG TABLET PO SCH (08:36)
[2017-07-29] MEDS: oxyCODONE HCL SR 10MG TAB.SR.12H PO SCH ×2 (08:40→21:23)
[2017-07-29 10:31] LABS: CALCIUM, SERUM 8.2 mg/dL (8.5-10.1); CREATININE 1.5 mg/dL (0.6-1.3); MAGNESIUM 1.5 mg/dL (1.8-2.4); PHOSPHORUS 4.4 mg/dL (2.5-4.9)
[2017-07-29 10:41] LABS: POTASSIUM 3.9 mmol/L (3.5-5.1)
[2017-07-29 10:48] LABS: BASOPHILS % (AUTO) 0.5 % (0.0-2.0); EOSINOPHILS % (AUTO) 3.3 % (0.0-6.0); HEMATOCRIT 26 % (33-45); HEMOGLOBIN 8.8 g/dL (11.5-14.8); LYMPHOCYTES # (AUTO) 1.5 /CMM (0.8-4.8); LYMPHOCYTES % (AUTO) 31.4 % (20.0-44.0); MEAN CORPUSCULAR HGB CONC 35 g/dl (31.0-36.0); MEAN CORPUSCULAR VOLUME 98 fL (82-100); MONOCYTES # (AUTO) 0.8 /CMM (0.1-1.30); MONOCYTES % (AUTO) 16.3 % (2.0-12.0); NEUTROPHILS # (AUTO) 2.2 /CMM (1.8-8.9); NEUTROPHILS % (AUTO) 48.5 % (43.0-81.0); PLATELET COUNT (AUTO) 200 /CMM (150-450); RDW COEFFICIENT OF VARIATION 24.8 (11.5-15.0); RED BLOOD CELL COUNT(AUTO) 2.62 MIL/uL (4.0-5.2); WHITE BLOOD COUNT (AUTO) 4.6 K/uL (4.3-11.0)
[2017-07-29] MEDS ORDERED: VALS40TA4 PO (11:07)
[2017-07-29] MEDS ORDERED: GABA300C PO (11:07)
[2017-07-29] MEDS ORDERED: AMLO5TAB7 PO (11:07)
[2017-07-29] MEDS ORDERED: MAGNESIUM OXIDE 400 MG TABLET PO ONE (11:30)
[2017-07-29] MEDS ORDERED: POTASSIUM CHLORIDE 20 MEQ TAB.PRT.SR PO ONE (11:30)
--- NOTE | 2017-07-29 18:14 | NUR ---
MS RN CLOSING NOTE PATIENT IS RESTING COMFORTABLY AT THIS TIME. NO SOB OR DISTRESS NOTED. CALL LIGHT WITHIN REACH AT ALL TIMES. SAFETY MEASURES IMPLEMENTED. ALL DUE MEDICATIONS GIVEN ORDERED. ALL NURSING CARE NEEDS ATTENDED TO NEEDED. NO IV. ABLE TO COMMUNICATE NEEDS. DISCHARGE PLANNING ON HOLD. WILL ENDORSE TO SENIOR SCHEDULER NURSE FOR JESUS ALBERTO
--- NOTE | 2017-07-29 19:00 | NUR ---
RECIEVED MS WILSON ALERT AND ORIENTATED IN BED IN CHAIR AT HER SIDE. PATIENT IS SMILING AND IN GOOD SPIRITS. NO NOTED SOB OR PAIN AT THIS TIME EXPLAINED TO HER GETTING OOB TO CALL FOR ASSIST FOR SAFETY NOTED THE BSC AT THE BEDSIDE
[2017-07-29 20:00] VITALS: BP 143/69
[2017-07-29 20:27] VITALS: BP 143/69
[2017-07-29] MEDS: ENOXAPARIN SODIUM 40 MG/0.4 ML DISP.SYRIN SQ SCH (21:20)
[2017-07-29] MEDS: NORTRIPTYLINE HCL 25 MG CAPSULE PO SCH (21:22)
[2017-07-29] MEDS: GABAPENTIN 300 MG CAPSULE PO SCH (21:23)
[2017-07-30] MEDS: MECLIZINE HCL 12.5 MG TABLET PO SCH ×3 (05:15→21:17)
--- NOTE | 2017-07-30 05:24 | NUR ---
MS WILSON SLEPT THRU THE NIGHT CHANGING HER OWN POSITION NO SOB NO PAIN FRIENDLY AND COOPERATIVE. MAKES HER NEEDS KNOWN. AT HER BEDSIDE THROUH THE NIGHT. ALEXANDER IS SEND HER TO SNF TODAY. NO C/O DIZZINESS
--- NOTE | 2017-07-30 07:45 | NUR ---
RN NOTE: INITIAL PATIENT RECEIVED ASLEEP, EASILY AROUSED. ON ROOM AIR. NO BREATHING DIFFICULTY NOTED. ABLE TO VERBALIZE NEEDS. AMBULATORY. NO IV LINE. MD AWARE. AT BEDSIDE. SAFETY MEASURES OBSERVED. CALL LIGHT WITHIN REACH. WILL CONTINUE TO MONITOR.
[2017-07-30 08:00] VITALS: BP 139/67
[2017-07-30] MEDS: busPIRone 5 MG TABLET PO SCH ×2 (09:34→18:08)
[2017-07-30] MEDS: POTASSIUM CHLORIDE 20 MEQ TAB.PRT.SR PO SCH (09:34)
[2017-07-30] MEDS: VENLAFAXINE XR 150 MG CAP.SR.24H PO SCH (09:34)
[2017-07-30] MEDS: VALSARTAN 40 MG TABLET PO SCH (09:34)
[2017-07-30] MEDS: LEVOTHYROXINE SODIUM 100 MCG TABLET PO SCH (09:35)
[2017-07-30] MEDS: FOLIC ACID 1 MG TABLET PO SCH (09:35)
[2017-07-30] MEDS: AMLODIPINE BESYLATE 5 MG TABLET PO SCH (09:35)
[2017-07-30] MEDS: oxyCODONE HCL SR 10MG TAB.SR.12H PO SCH ×2 (09:36→21:24)
[2017-07-30 10:18] LABS: BASOPHILS % (AUTO) 0.6 % (0.0-2.0); EOSINOPHILS % (AUTO) 3.7 % (0.0-6.0); HEMATOCRIT 26 % (33-45); LYMPHOCYTES # (AUTO) 1.1 /CMM (0.8-4.8); LYMPHOCYTES % (AUTO) 24.2 % (20.0-44.0); MEAN CORPUSCULAR HGB CONC 35 g/dl (31.0-36.0); MEAN CORPUSCULAR VOLUME 98 fL (82-100); MONOCYTES # (AUTO) 0.5 /CMM (0.1-1.30); NEUTROPHILS # (AUTO) 2.8 /CMM (1.8-8.9); NEUTROPHILS % (AUTO) 61.5 % (43.0-81.0); PLATELET COUNT (AUTO) 235 /CMM (150-450); RDW COEFFICIENT OF VARIATION 24.2 (11.5-15.0); RED BLOOD CELL COUNT(AUTO) 2.66 MIL/uL (4.0-5.2); WHITE BLOOD COUNT (AUTO) 4.5 K/uL (4.3-11.0)
[2017-07-30 10:29] LABS: CALCIUM, SERUM 8.7 mg/dL (8.5-10.1); CREATININE 1.6 mg/dL (0.6-1.3); MAGNESIUM 1.6 mg/dL (1.8-2.4); PHOSPHORUS 4.1 mg/dL (2.5-4.9); POTASSIUM 4.6 mmol/L (3.5-5.1)
[2017-07-30] MEDS: ONDANSETRON 4 MG TAB.RAPDIS PO PRN (12:49)
--- NOTE | 2017-07-30 14:53 | NUR ---
FF. UP WITH CM STILL WAITING FOR PLACEMENT.
[2017-07-30 16:00] VITALS: BP 123/67
--- NOTE | 2017-07-30 18:44 | NUR ---
RN NOTE: PATIENT REMAINS STABLE DURING SHIFT. NO SIGNIFICANT CHANGES NOTED. FREE FROM FALL/INJURY. STILL LOOKING FOR PLACEMENT. WILL CONTINUE WITH PLAN OF CARE. SAFETY MEASURES OBSERVED. WILL ENDORSE TO PM SHIFT FOR CONTINUITY OF CARE.
[2017-07-30 20:00] VITALS: BP 140/64
[2017-07-30] MEDS: ENOXAPARIN SODIUM 40 MG/0.4 ML DISP.SYRIN SQ SCH (21:17)
[2017-07-30] MEDS: NORTRIPTYLINE HCL 25 MG CAPSULE PO SCH (21:17)
[2017-07-30] MEDS: GABAPENTIN 300 MG CAPSULE PO SCH (21:17)
--- NOTE | 2017-07-30 21:25 | NUR ---
MS1/RN PATIENT REQUESTS NOT TO BE BOTHERED BY ALL MEANS WHEN SHE IS SLEEPING. PER PATIENT SHE NEEDS DARRELL GET MUCH REST/SLEEP POSSIBLE.
--- NOTE | 2017-07-31 06:09 | NUR ---
MS1/RN PATIENT STILL SLEEPING, STILL UNABLE TO GIVE MECLIZINE THE PATIENT REQUESTED NOT TO BE AWAKENED WHEN SLEEPING. BLOOD DRAW AND VITAL SIGNS NOT DONE YET. WILL TRY AGAIN LATER.
[2017-07-31] MEDS: MECLIZINE HCL 12.5 MG TABLET PO SCH ×3 (06:56→20:21)
--- NOTE | 2017-07-31 07:10 | NUR ---
RN INITIAL NOTES: REC'D PT ASLEEP ON BED, DON'T WANT TO BE DISTURBED AT THIS TIME. PT ON ROOM AIR, NOT IN ANY DISTRESS, A/O X 4. NO IV ACCESS NOTED, MD AWARE. AT BEDSIDE. PROVIDED COMFORT & SAFETY MEASURES. BED KEPT LOW & IN LOCKED POS. CALL LIGHT PLACED W/IN REACH. WILL CONTINUE TO MONITOR & ATTEND PT NEEDS. FOR POSS DC TODAY, DCP TO SNF. AWAITING CM.
[2017-07-31 08:00] VITALS: BP 155/83
[2017-07-31] MEDS: POTASSIUM CHLORIDE 20 MEQ TAB.PRT.SR PO SCH (09:23)
[2017-07-31] MEDS: FOLIC ACID 1 MG TABLET PO SCH (09:23)
[2017-07-31] MEDS: LEVOTHYROXINE SODIUM 100 MCG TABLET PO SCH (09:23)
[2017-07-31] MEDS: busPIRone 5 MG TABLET PO SCH ×2 (09:23→16:46)
[2017-07-31] MEDS: VENLAFAXINE XR 150 MG CAP.SR.24H PO SCH (09:23)
[2017-07-31] MEDS: Z GUARD REMEDY 2 OZ OINT TP PRN (09:24)
[2017-07-31] MEDS: AMLODIPINE BESYLATE 5 MG TABLET PO SCH (09:56)
[2017-07-31] MEDS: VALSARTAN 40 MG TABLET PO SCH (09:56)
[2017-07-31] MEDS: oxyCODONE HCL SR 10MG TAB.SR.12H PO SCH ×2 (09:57→20:21)
--- NOTE | 2017-07-31 12:51 | NUR ---
ff. up with cm still pending placement.
[2017-07-31 16:00] VITALS: BP 123/71
--- NOTE | 2017-07-31 18:24 | NUR ---
RN CLOSING NOTES: NO ACUTE CHANGES NOTED W/IN SHIFT. PT TOLERATED ROOM AIR, NOT IN ANY DISTRESS, A/O X 4. PT REFUSED TO HAVE IV ACCESS, MD IS AWARE. DTR AT BEDSIDE. KEPT WELL RESTED. NEEDS ATTENDED. OFFERED BED BATH, DTR SAID PT WANTED SHOWER BUT STILL SLEEPY AT THIS TIME, WILL CALL STAFF ONCE SHE IS READY. BED KEPT LOW & IN LOCKED POS. CALL LIGHT PLACED W/IN REACH. WILL ENDORSE TO PM RN FOR JESUS ALBERTO.
--- NOTE | 2017-07-31 19:40 | NUR ---
MS RN NOTES, PATIENT ALERT AND ORIENTED X4 ABLE TO VERBALIZED NEEDS, FAMILY AT BEDSIDE, NO SOB/ACUTE DISTRESS NOTED, RA SATURATION >96%, NO IV ACCESS, MD AWARE, WILLCONTINUE TO MONITOR CLOSELY, CALL LIGHT W/W REACH.
[2017-07-31 20:00] VITALS: BP 124/66
[2017-07-31] MEDS: ENOXAPARIN SODIUM 40 MG/0.4 ML DISP.SYRIN SQ SCH (20:22)
[2017-07-31] MEDS: GABAPENTIN 300 MG CAPSULE PO SCH (21:24)
[2017-07-31] MEDS: NORTRIPTYLINE HCL 25 MG CAPSULE PO SCH (21:24)
--- NOTE | 2017-07-31 22:50 | NUR ---
RN MS NOTES, TRANSFER PATIENT FOR CONTINUATION OF CARE TO RORO GARVEY.
--- NOTE | 2017-08-01 04:00 | NUR ---
RN NOTE PATIENT IS ALERT/ORIENTED X4, REFUSED VITAL SIGNS
--- NOTE | 2017-08-01 05:00 | NUR ---
RN NOTE DAUGHTER OF THE PATIENT ASKED NOT TO WAKE PATIENT FOR ADMINISTRATION OF MEDICATION THAT EARLY, MECLIZINE WAS NOT ADMINISTERED YET, WILL TRY IN 1 HOUR
--- NOTE | 2017-08-01 06:33 | NUR ---
RN NOTE PATIENT REQUESTED TO ADMINISTER MECLIZINE AT 8AM, ALSO REFUSED SKIN PICTURES, WILL ENDORSE TO AM SHIFT
[2017-08-01 08:00] VITALS: BP 111/60
[2017-08-01] MEDS: LEVOTHYROXINE SODIUM 100 MCG TABLET PO SCH (08:19)
[2017-08-01] MEDS: busPIRone 5 MG TABLET PO SCH ×2 (08:19→16:02)
[2017-08-01] MEDS: VALSARTAN 40 MG TABLET PO SCH (08:19)
[2017-08-01] MEDS: VENLAFAXINE XR 150 MG CAP.SR.24H PO SCH (08:19)
[2017-08-01] MEDS: AMLODIPINE BESYLATE 5 MG TABLET PO SCH (08:20)
[2017-08-01] MEDS: oxyCODONE HCL SR 10MG TAB.SR.12H PO SCH ×2 (08:20→21:58)
[2017-08-01] MEDS: MECLIZINE HCL 12.5 MG TABLET PO SCH ×2 (08:20→16:02)
[2017-08-01] MEDS: FOLIC ACID 1 MG TABLET PO SCH (08:20)
[2017-08-01] MEDS: POTASSIUM CHLORIDE 20 MEQ TAB.PRT.SR PO SCH (08:20)
[2017-08-01 09:30] VITALS: BP 111/60
[2017-08-01] MEDS: ONDANSETRON 4 MG TAB.RAPDIS PO PRN (10:05)
[2017-08-01 15:07] LABS: BASOPHILS % (AUTO) 0.1 % (0.0-2.0); EOSINOPHILS % (AUTO) 0.7 % (0.0-6.0); HEMATOCRIT 25 % (33-45); HEMOGLOBIN 8.4 g/dL (11.5-14.8); LYMPHOCYTES # (AUTO) 0.9 /CMM (0.8-4.8); LYMPHOCYTES % (AUTO) 11.5 % (20.0-44.0); MEAN CORPUSCULAR HGB CONC 34 g/dl (31.0-36.0); MEAN CORPUSCULAR VOLUME 98 fL (82-100); MONOCYTES # (AUTO) 0.8 /CMM (0.1-1.30); MONOCYTES % (AUTO) 11.2 % (2.0-12.0); NEUTROPHILS # (AUTO) 5.7 /CMM (1.8-8.9); NEUTROPHILS % (AUTO) 76.5 % (43.0-81.0); PLATELET COUNT (AUTO) 246 /CMM (150-450); RDW COEFFICIENT OF VARIATION 23.3 (11.5-15.0); RED BLOOD CELL COUNT(AUTO) 2.52 MIL/uL (4.0-5.2); WHITE BLOOD COUNT (AUTO) 7.4 K/uL (4.3-11.0)
[2017-08-01 15:26] LABS: CALCIUM, SERUM 8.5 mg/dL (8.5-10.1); CREATININE 1.6 mg/dL (0.6-1.3); MAGNESIUM 1.3 mg/dL (1.8-2.4); PHOSPHORUS 3.5 mg/dL (2.5-4.9); POTASSIUM 5.1 mmol/L (3.5-5.1)
[2017-08-01 16:00] VITALS: BP 107/63
[2017-08-01] MEDS: Magnesium 1GM/D5W 100ML PREMIX 100 ML IV SCH ×2 (16:02→17:11)
--- NOTE | 2017-08-01 18:27 | NUR ---
MS/RN CLOSING NOTE PATIENT IN BED IN STABLE CONDITION. A/O X 4. NO SIGNS OF ACUTE DISTRESS. NO COMPLAIN OF PAIN OR DISCOMFORT. ALL NEEDS ATTENDED TO. CALL LIGHT WITHIN REACH. WILL ENDORSE TO NEXT SHIFT FOR CONTINUITY OF CARE.
[2017-08-01 20:00] VITALS: BP 120/63
[2017-08-01] MEDS: NORTRIPTYLINE HCL 25 MG CAPSULE PO SCH (21:57)
[2017-08-01] MEDS: GABAPENTIN 300 MG CAPSULE PO SCH (21:57)
[2017-08-01] MEDS: ENOXAPARIN SODIUM 40 MG/0.4 ML DISP.SYRIN SQ SCH (22:01)
[2017-08-02 07:17] LABS: CALCIUM, SERUM 8.6 mg/dL (8.5-10.1); CREATININE 1.7 mg/dL (0.6-1.3); POTASSIUM 4.9 mmol/L (3.5-5.1)
[2017-08-02 08:00] VITALS: BP 119/58
--- NOTE | 2017-08-02 08:00 | NUR ---
MS RN RECEIVED ON BED, SLEEPING,NOT IN ANY FORM OF DISTRESS, RESPIRATIONS EVEN AND UNLABORED, NO SOB NOTED, LUNGS ARE CLEAR,ABDOMEN SOFT,POSITIVE BOWEL SOUNDS, DENIES PAIN AT THIS TIME.WILL MONITOR PATIENT'S CONDITION.
[2017-08-02] MEDS: AMLODIPINE BESYLATE 5 MG TABLET PO SCH (09:00)
--- NOTE | 2017-08-02 09:00 | NUR ---
MS RN PATIENT STILL SLEEPING, REFUSED MEDS, WILL GIVE LATER.
--- NOTE | 2017-08-02 10:30 | NUR ---
MS WRITING MANAGER HERE, PATIENT AWAKE,ATE BREAKFAST,DUE MEDS GIVEN.
[2017-08-02] MEDS: LEVOTHYROXINE SODIUM 100 MCG TABLET PO SCH (11:01)
[2017-08-02] MEDS: POTASSIUM CHLORIDE 20 MEQ TAB.PRT.SR PO SCH (11:02)
[2017-08-02] MEDS: busPIRone 5 MG TABLET PO SCH ×2 (11:02→17:07)
[2017-08-02] MEDS: VENLAFAXINE XR 150 MG CAP.SR.24H PO SCH (11:02)
[2017-08-02] MEDS: MECLIZINE HCL 12.5 MG TABLET PO SCH ×3 (11:02→17:07)
[2017-08-02] MEDS: FOLIC ACID 1 MG TABLET PO SCH (11:02)
[2017-08-02] MEDS: oxyCODONE HCL SR 10MG TAB.SR.12H PO SCH ×2 (11:03→21:33)
--- NOTE | 2017-08-02 19:23 | NUR ---
RN OPENING NOTES RECEIVED REPORT FROM AUGUSTIN GARVEY. PATIENT A/A/O X3, ABLE TO VERBALIZE NEEDS. BREATHING EVEN & UNLABORED, STABLE ON ROOM AIR. PULSES PRESENT. SKIN WARM, DRY & INTACT. ABLE TO USE BEDSIDE COMMODE & TURN INDEPENDENTLY IN BED. RIGHT WRIST IV #22 INTACT & PATENT W/ DRESSING CDI, SALINE LOCKED. SAFETY MEASURES IN PLACE W/ CALL LIGHT WITHIN REACH. INSTRUCTED TO CALL FOR ASSISTANCE. WILL CONTINUE TO MONITOR.
[2017-08-02 20:00] VITALS: BP 121/64
[2017-08-02 20:54] VITALS: BP 121/64
[2017-08-02] MEDS: ENOXAPARIN SODIUM 40 MG/0.4 ML DISP.SYRIN SQ SCH (21:32)
[2017-08-02] MEDS: NORTRIPTYLINE HCL 25 MG CAPSULE PO SCH (21:32)
[2017-08-02] MEDS: GABAPENTIN 300 MG CAPSULE PO SCH (21:33)
[2017-08-03 04:00] VITALS: BP 121/61
[2017-08-03 06:08] VITALS: BP 121/64
--- NOTE | 2017-08-03 07:15 | NUR ---
RN NOTES PT IS LAYING DOWN IN BED, AWAKE AND ALERT WITH FAMILY AT BEDSIDE. PT ON RA, RESPIRATIONS ARE EVEN AND UNLABORED. IV ON R WRIST INTACT AND SL. NO SIGNS OF DISTRESS NOTED. SAFETY MEASURES ARE IN PLACE, CALL LIGHT IS IN REACH. WILL CONTINUE TO MONITOR.
[2017-08-03 08:00] VITALS: BP 130/71
[2017-08-03] MEDS: LEVOTHYROXINE SODIUM 100 MCG TABLET PO SCH (08:13)
[2017-08-03] MEDS: FOLIC ACID 1 MG TABLET PO SCH (08:13)
[2017-08-03] MEDS: MECLIZINE HCL 12.5 MG TABLET PO SCH ×4 (08:13→23:44)
[2017-08-03] MEDS: VENLAFAXINE XR 150 MG CAP.SR.24H PO SCH (08:14)
[2017-08-03] MEDS: busPIRone 5 MG TABLET PO SCH ×2 (08:14→16:04)
[2017-08-03] MEDS: POTASSIUM CHLORIDE 20 MEQ TAB.PRT.SR PO SCH (08:14)
[2017-08-03] MEDS: oxyCODONE HCL SR 10MG TAB.SR.12H PO SCH ×2 (08:14→21:24)
[2017-08-03] MEDS: AMLODIPINE BESYLATE 5 MG TABLET PO SCH (08:14)
[2017-08-03 16:00] VITALS: BP 130/71
--- NOTE | 2017-08-03 18:10 | NUR ---
RN NOTES FOLLOWED UP WITH JACKY SUPERINTENDENT [facility]CUS FOR DISCHARGE. NO NEW PLAN FOR DISCHARGE, WILL STAY THE NIGHT
--- NOTE | 2017-08-03 18:32 | NUR ---
RN NOTES PT IS LAYING DOWN IN BED, ALERT AND ORIENTED, WITH FAMILY AT BEDSIDE. PT ON RA, RESPIRATIONS ARE EVEN AND UNLABORED. IV ON R WRIST INTACT AND SL. ALL MEDS WERE GIVEN ORDERED AND PT NEEDS MET. PT WAS ABLE TO AMBULATE WITH PHYSICAL THERAPY USING A WALKER. SAFETY MEASURES ARE IN PLACE, CALL LIGHT IS IN REACH. WILL ENDORSE TO COMBAT SYSTEMS OPERATOR RN FOR CONTINUITY OF CARE.
--- NOTE | 2017-08-03 19:20 | NUR ---
RN OPENING NOTES RECEIVED REPORT FROM JUSTIN GARVEY. PATIENT A/A/O X3, ABLE TO VERBALIZE NEEDS. BREATHING EVEN & UNLABORED, STABLE ON ROOM AIR. PULSES PRESENT. SKIN WARM, DRY & INTACT. ABLE TO USE BEDSIDE COMMODE & TURN INDEPENDENTLY IN BED. RIGHT WRIST IV #22 INTACT & PATENT W/ DRESSING CDI, SALINE LOCKED. DENIES ANY PAIN OR DISCOMFORT @ THIS TIME. SAFETY MEASURES IN PLACE W/ CALL LIGHT WITHIN REACH. INSTRUCTED TO CALL FOR ASSISTANCE. FAMILY @ BEDSIDE. WILL CONTINUE TO MONITOR.
[2017-08-03 20:00] VITALS: BP 137/62
[2017-08-03] MEDS: GABAPENTIN 300 MG CAPSULE PO SCH (21:24)
[2017-08-03] MEDS: NORTRIPTYLINE HCL 25 MG CAPSULE PO SCH (21:24)
[2017-08-03] MEDS: ENOXAPARIN SODIUM 40 MG/0.4 ML DISP.SYRIN SQ SCH (21:25)
[2017-08-04] VITALS: BP 120/57
[2017-08-04 08:00] VITALS: BP 129/56
[2017-08-04 08:10] VITALS: BP 129/56
[2017-08-04] MEDS: LEVOTHYROXINE SODIUM 100 MCG TABLET PO SCH (08:31)
[2017-08-04] MEDS: FOLIC ACID 1 MG TABLET PO SCH (08:32)
[2017-08-04] MEDS: VENLAFAXINE XR 150 MG CAP.SR.24H PO SCH (08:32)
[2017-08-04] MEDS: MECLIZINE HCL 12.5 MG TABLET PO SCH ×2 (08:32→16:53)
[2017-08-04] MEDS: POTASSIUM CHLORIDE 20 MEQ TAB.PRT.SR PO SCH (08:32)
[2017-08-04] MEDS: busPIRone 5 MG TABLET PO SCH ×2 (08:33→16:53)
[2017-08-04] MEDS: oxyCODONE HCL SR 10MG TAB.SR.12H PO SCH (08:34)
[2017-08-04] MEDS: AMLODIPINE BESYLATE 5 MG TABLET PO SCH (08:39)
[2017-08-04 10:53] LABS: BASOPHILS % (AUTO) 0.3 % (0.0-2.0); EOSINOPHILS % (AUTO) 1.5 % (0.0-6.0); HEMATOCRIT 24 % (33-45); HEMOGLOBIN 8.3 g/dL (11.5-14.8); LYMPHOCYTES # (AUTO) 1.1 /CMM (0.8-4.8); LYMPHOCYTES % (AUTO) 15.6 % (20.0-44.0); MEAN CORPUSCULAR HGB CONC 35 g/dl (31.0-36.0); MEAN CORPUSCULAR VOLUME 98 fL (82-100); MONOCYTES # (AUTO) 0.8 /CMM (0.1-1.30); MONOCYTES % (AUTO) 11.5 % (2.0-12.0); NEUTROPHILS % (AUTO) 71.1 % (43.0-81.0); PLATELET COUNT (AUTO) 291 /CMM (150-450); RED BLOOD CELL COUNT(AUTO) 2.44 MIL/uL (4.0-5.2)
[2017-08-04 11:03] LABS: CALCIUM, SERUM 8.6 mg/dL (8.5-10.1); CREATININE 1.7 mg/dL (0.6-1.3); POTASSIUM 4.6 mmol/L (3.5-5.1)
[2017-08-04] MEDS: ONDANSETRON 4 MG TAB.RAPDIS PO PRN (12:42)
[2017-08-04 16:00] VITALS: BP 96/65
--- NOTE | 2017-08-04 16:09 | NUR ---
MS SALES ACCOUNT EXECUTIVE CLOSING NOTE, PATIENT A/A/O X3, ABLE TO VERBALIZE NEEDS. BREATHING EVEN & UNLABORED, STABLE ON ROOM AIR. PULSE PRESENT. SKIN WARM, DRY & INTACT. ABLE TO USE BEDSIDE COMMODE & TURN INDEPENDENTLY IN BED. DENIES ANY PAIN OR DISCOMFORT @ THIS TIME. SAFETY MEASURES IN PLACE W/ CALL LIGHT WITHIN REACH. INSTRUCTED TO CALL FOR ASSISTANCE. FAMILY @ BEDSIDE. WILL ENDORSE TO FACUNDO GARVEY TO CONTINUE PLAN OF CARE.
[2017-08-04] MEDS: oxyCODONE IR immediate release 5 MG PO PRN (16:53)
--- NOTE | 2017-08-04 17:38 | NUR ---
MS RN NOTES PATIENT VERBALIZED THE PATIENT FELL ON HER BUTTOCKS WHILE TRYING TO GO TO THE COMMODE. BASSEM GAREVY CAME TO THE PATIENT ROOM, SAW THE PATIENT SITTING DOWN ON HER BUTTOCKS. NO WITNESSES ON THE FALL ITSELF CLAIMED BY THE . ASSESSED THE PATIENT,NO BUMPS ON THE HEAD. PERRLA IS NORMAL. NO WEAKNESS. NO BRUISING NOTED AT THIS TIME. PT VERBALIZED PAIN SCALE OF 5. PAIN MED GIVEN PRN. NO NAUSEA. VITAL SIGNS CHECKED AND V/S ARE STABLE. DR ALBERT NOTIFIED. ORDERED XRAY ON THE SPINE AND IN THE SHOULDER. WILL CONTINUE TO MONITOR PT CLOSELY.
--- NOTE | 2017-08-04 17:49 | NUR ---
MS RN NOTES CALLED [facility] FOR REPORT. REPORT GIVEN TO ALFREDA.
--- NOTE | 2017-08-04 18:25 | NUR ---
MS RN NOTES NO ACUTE CHANGES NOTED DURING THE SHIFT. WILL ENDORSE TO THE PM NURSE FOR JESUS ALBERTO.
--- NOTE | 2017-08-04 19:20 | NUR ---
RN OPENING NOTES RECEIVED REPORT FROM FACUNDO GARVEY. PATIENT A/A/O X3, ABLE TO VERBALIZE NEEDS. BREATHING EVEN & UNLABORED, STABLE ON ROOM AIR. PULSES PRESENT. SKIN WARM, DRY & INTACT. ABLE TO TURN INDEPENDENTLY IN BED. RIGHT WRIST IV #22 INTACT & PATENT W/ DRESSING CDI, SALINE LOCKED. DENIES ANY PAIN OR DISCOMFORT @ THIS TIME. SAFETY MEASURES IN PLACE W/ CALL LIGHT WITHIN REACH. INSTRUCTED TO CALL FOR ASSISTANCE. FAMILY @ BEDSIDE. WILL CONTINUE TO MONITOR.
[2017-08-04 20:00] VITALS: BP 137/48
--- NOTE | 2017-08-04 20:22 | NUR ---
RN NOTES RECEIVED RESULTS OF LUMBAR SPINE X-RAY & PELVIS X-RAY SHOWING NO SIGNS OF ACUTE FRACTURE. CALLED & INFORMED DR ALBERT & [place] [facility] [place] & REPORT GIVEN TO
--- NOTE | 2017-08-04 20:55 | NUR ---
RN NOTES PATIENT PICKED UP BY AMBULANCE AND DISCHARGED TO [facility]. LEFT IN STABLE CONDITION. ALL PAPERWORK SIGNED.
== END 2017-08-04 20:55 | DRG 180 ==
LOC: ER 21:39 → TELE-TD 07-19 02:51 → TELE1 07-19 12:25 → MEDSG1 07-22 10:00
PROVIDERS: ADMIT Internal Medicine; ATTEND Internal Medicine
PROC: 30233N1 Transfusion of Nonautologous Red Blood Cells into Peripheral Vein, Percutaneous Approach (ICD-10-PCS; principal; 2017-07-19)
DX: C34.90 Malignant neoplasm of unspecified part of unspecified bronchus or lung (principal); N17.0 Acute kidney failure with tubular necrosis; I50.33 Acute on chronic diastolic (congestive) heart failure; C79.51 Secondary malignant neoplasm of bone; D68.59 Other primary thrombophilia; E46 Unspecified protein-calorie malnutrition; D64.81 Anemia due to antineoplastic chemotherapy; E83.39 Other disorders of phosphorus metabolism; E86.0 Dehydration; I13.0 Hypertensive heart and chronic kidney disease with heart failure and stage 1 through stage 4 chronic kidney disease, or unspecified chronic kidney disease; G61.81 Chronic inflammatory demyelinating polyneuritis; E03.9 Hypothyroidism, unspecified; R53.1 Weakness; D63.0 Anemia in neoplastic disease; T45.1X5A Adverse effect of antineoplastic and immunosuppressive drugs, initial encounter; E83.42 Hypomagnesemia; E87.6 Hypokalemia; F32.9 Major depressive disorder, single episode, unspecified; F41.9 Anxiety disorder, unspecified; N18.9 Chronic kidney disease, unspecified; H81.10 Benign paroxysmal vertigo, unspecified ear; R73.9 Hyperglycemia, unspecified; G72.9 Myopathy, unspecified; E88.09 Other disorders of plasma-protein metabolism, not elsewhere classified; G89.3 Neoplasm related pain (acute) (chronic); Z68.36 Body mass index [BMI] 36.0-36.9, adult; Y92.009 Unspecified place in unspecified non-institutional (private) residence as the place of occurrence of the external cause
CPT/HCPCS: 36415; 70450-TC; 70553-TC; 71045-TC; 72100-TC; 72170-TC; 80048-TC; 80053-TC; 81000-TC; 83540-TC; 83735-TC; 83880; 83935-TC; 84100-TC; 84300-TC; 84443-TC; 85025-TC; 86850-TC; 86921-TC; 87081-TC; 87086-TC; 93970-TC; 93971-TC; 97110-TC; 97116-TC; 97530-TC; A4606; A9579; J1200; J1650; J1940; J2270; J2405; J3475; J3480; J7040; J7050; J7070; J8597; P9016-BL; Q0162; Z7610